=== PATIENT | female | born 1980 | race Caucasian/White ===

== ENCOUNTER 2017-08-15 08:42 | Emergency (ER) | payer MEDICAID, OTHER ==
[~2017-08-15] VITALS: Wt 62.0 kg
[~2017-08-15 08:42] MED LIST: PREN1TAB49 PO
[2017-08-15] MEDS ORDERED: PENICILLIN G BENZ 1.2 MIL UNIT SYG IM ONE (09:30)
[2017-08-15] MEDS ORDERED: DEXAMETHASONE 10 MG/ML 1 ML INJ IM ONE (09:30)
[2017-08-15] MEDS ORDERED: GUAI-106 PO (09:34)
[2017-08-15] MEDS ORDERED: NAPR-260 PO (09:34)
--- NOTE | 2017-08-15 09:47 | ERD ---
ER Documentation Chief Complaint Chief Complaint THROAT PAIN, FEVER, BODYACHES X2 WEEKS HPI 37-year-old otherwise healthy female presents the emergency department for complaints of sore throat, intermittent fever and body aches 2 weeks. Patient states that she saw her primary care physician 1 week ago who prescribed her amoxicillin which improved her symptoms significantly. Her last dose was 4 days ago and she stated that since that time her symptoms have gradually worsened. She denies cough, abdominal pain, headache or dizziness. She states she is attempted to treat her fever with Motrin and Tylenol at home which improved her symptoms. ROS All systems reviewed and are negative except as per history of present illness. Medications Home Meds Active Scripts Guaifenesin/Pseudoephedrne HCl (Mucinex D ER 1,200-120 mg Tab) 1 Each Tab.er.12h , 2 EACH PO Q8 for 5 Days, TAB Prov:NICHOLAS YEH PA-C 08/15/17 Naproxen* (Naprosyn*) 500 Mg Tablet, 500 MG PO BID for 7 Days, TAB Prov:NICHOLAS YEH PA-C 08/15/17 Reported Medications Vits W-Ca,Fe,Fa(<1MG) () 1 Tab Tablet, 1 TAB PO 07/21/11 Allergies Allergies: Coded Allergies: No Known Allergy (Verified , NKA, 02/07/13) PMhx/Soc Medical and Surgical Hx: pt denies Surgical Hx History of Surgery: No Anesthesia Reaction: No Hx Neurological Disorder: No Hx Respiratory Disorders: Yes (Asthma) Hx Cardiac Disorders: No Hx Psychiatric Problems: No Hx Miscellaneous Medical Probl: No Hx Alcohol Use: No Hx Substance Use: No Hx Tobacco Use: No Smoking Status: Never smoker Physical Exam Vitals Vital Signs Date Time Temp Pulse Resp B/P Pulse Ox O2 Delivery O2 Flow Rate FiO2 08/15/17 08:43 100.0 118 17 125/78 100 Physical Exam Const: Well-developed, well-nourished, nontoxic Head: Atraumatic Eyes: Normal Conjunctiva ENT: Normal External Ears, Nose and Mouth. Posterior pharynx with 1+ bilateral tonsillar swelling and erythema. No exudate. Uvula midline. Neck: Full range of motion..~ No meningismus. Bilateral anterior lymphadenopathy. Resp: Clear to auscultation bilaterally Cardio: Regular rate and rhythm, no murmurs Abd: Soft, non tender, non distended. Normal bowel sounds Skin: No petechiae or rashes Ext: No cyanosis, or edema Neur: Awake and alert Psych: Normal Mood and Affect Results 24 hrs Current Medications Medications (Trade) Dose Ordered Sig/Patrice Route PRN Reason Start Time Stop Time Status Last Admin Dose Admin Penicillin G Benzathine (Bicillin La) 1,200,000 units ONCE ONCE IM 08/15/17 09:30 08/15/17 09:31 DC Dexamethasone (Decadron) 10 mg ONCE ONCE IM 08/15/17 09:30 08/15/17 09:31 DC Ibuprofen (Motrin) 600 mg ONCE ONCE PO 08/15/17 10:00 08/15/17 10:01 Procedures/MDM This is a 37-year-old female who presents emergency department for complaints of sore throat, intermittent fever and body aches 2 weeks. Patient nontoxic appearing upon arrival. Vital signs reviewed. Patient with a temperature of 100F. She was tachycardic at 118 bpm. Patient otherwise normotensive and not hypoxic. Physical exam with evidence of anterior lymphadenopathy and bilateral tonsillar swelling with erythema, concerning for bacterial pharyngitis. No evidence of peritonsillar abscess on exam. Patient moving air well. Lung sounds normal bilaterally. The patient does not exhibit any clinical signs or symptoms concerning for serious bacterial infection or systemic illness. Based on history and clinical exam findings the patient does not appear to have evidence of pneumonia, urinary tract infection, bacteremia, sepsis, or meningitis. For these reasons I do not believe it is necessary to obtain laboratory testing or diagnostic imaging. I believe it would be appropriate for symptom control, and close outpatient primary care follow-up. Patient received 1 dose of penicillin G as well as Decadron while in the emergency department. Based on patient's history of present illness and physical examination the decision was made to discharge. The patient was re-evaluated after ED treatment and stabilizing measures, and symptoms have improved. There is no evidence of life threatening injuries or illnesses at this time. On re-examination, patient resting in no distress, stable vital signs, reports feeling better and safe for discharge with outpatient follow up with PMD in 1-2 days. Patient given return precautions. Departure Diagnosis: Primary Impression: Flu-like symptoms Additional Impressions: URI (upper respiratory infection) URI type: unspecified URI Qualified Code: J06.9 - Upper respiratory tract infection, unspecified type Body aches Pharyngitis Pharyngitis/tonsillitis etiology: unspecified etiology Qualified Code: J02.9 - Pharyngitis, unspecified etiology Condition: Good Patient Instructions: Pharyngitis, Strep (Presumed) Referrals: [facility] YOU HAVE RECEIVED A MEDICAL SCREENING EXAM AND THE RESULTS INDICATE THAT YOU DO NOT HAVE A CONDITION THAT REQUIRES URGENT TREATMENT IN THE EMERGENCY DEPARTMENT. FURTHER EVALUATION AND TREATMENT OF YOUR CONDITION CAN WAIT UNTIL YOU ARE SEEN IN YOUR DOCTORS OFFICE WITHIN THE NEXT 1-2 DAYS. IT IS YOUR RESPONSIBILITY TO MAKE AN APPOINTMENT FOR FOL-UP CARE. IF YOU HAVE A PRIMARY DOCTOR --you should call your primary doctor and schedule an appointment IF YOU DO NOT HAVE A PRIMARY DOCTOR YOU CAN CALL OUR PHYSICIAN REFERRAL HOTLINE AT IF YOU CAN NOT AFFORD TO SEE A PHYSICIAN YOU CAN CHOSE FROM THE FOLLOWING [facility] [address] [facility] [address] [facility] [facility] [address] [facility] [address] [facility] [address] [facility] [facility]. [address] Additional Instructions: Call your primary care doctor TOMORROW for an appointment during the next 1-2 days.See the doctor sooner or return here if your condition worsens before your appointment time. NICHOLAS YEH PA-C Aug 15, 2017 09:47
[2017-08-15] MEDS ORDERED: IBUPROFEN 600 MG TAB PO ONE (10:00)
== END 2017-08-15 09:59 | disposition home or self-care (01) ==
LOC: FTE 08:42
DX: J06.9 Acute upper respiratory infection, unspecified (principal); J45.909 Unspecified asthma, uncomplicated
CPT/HCPCS: 96372; 99284; J0561; J1100

== ENCOUNTER 2017-09-09 12:35 | Emergency (ER) | END 2017-09-09 18:18 | disposition home or self-care (01) ==